=== PATIENT | male | born 1995 | race Caucasian/White ===

== ENCOUNTER → 2018-12-20 | Outpatient (CLI) | payer BC | LOC: LAB 18:38 | DX: R30.0 Dysuria (principal); Z20.2 Contact with and (suspected) exposure to infections with a predominantly sexual mode of transmission ==

== ENCOUNTER → 2020-06-03 | Outpatient (CLI) | payer BC | LOC: LAB 18:16 | DX: Z11.3 Encounter for screening for infections with a predominantly sexual mode of transmission (principal) ==

== ENCOUNTER → 2020-07-02 | Outpatient (CLI) | payer BC | LOC: LAB 18:42 | DX: A74.9 Chlamydial infection, unspecified (principal) ==

== ENCOUNTER 2022-02-09 13:18 | Outpatient (RCR) | payer OTHER ==
[~2022-02-09 13:18] MED LIST: NORCO 325 MG-51 TA1 PO
[2022-02-23] MEDS ORDERED: ACETAMINOPHEN-H1 TA2 PO (14:56)
== END 2022-02-10 ==
LOC: PT
DX: S92.322A Displaced fracture of second metatarsal bone, left foot, initial encounter for closed fracture (principal); S93.622A Sprain of tarsometatarsal ligament of left foot, initial encounter

== ENCOUNTER 2022-02-11 13:34 | Outpatient (RCR) | payer OTHER ==
[2022-02-23] MEDS ORDERED: ACETAMINOPHEN-H1 TA2 PO (14:56)
== END 2022-02-17 17:00 | disposition home or self-care (01) ==
LOC: PT 13:34
DX: S92.322D Displaced fracture of second metatarsal bone, left foot, subsequent encounter for fracture with routine healing (principal); S93.622D Sprain of tarsometatarsal ligament of left foot, subsequent encounter; X58.XXXD Exposure to other specified factors, subsequent encounter

== ENCOUNTER 2022-03-15 13:33 | Outpatient (RCR) | payer OTHER ==
[~2022-03-15 13:33] MED LIST changes: +ACETAMINOPHEN-H1 TA2 PO
== END 2022-04-12 | disposition still patient (30) ==
LOC: PT
DX: S97.82XD Crushing injury of left foot, subsequent encounter (principal); X58.XXXD Exposure to other specified factors, subsequent encounter

== ENCOUNTER 2022-04-13 13:10 | Outpatient (RCR) | payer OTHER | END 2022-05-12 | disposition home or self-care (01) | LOC: PT | DX: S97.82XD Crushing injury of left foot, subsequent encounter (principal); X58.XXXD Exposure to other specified factors, subsequent encounter ==

== ENCOUNTER 2023-01-11 13:33 | Outpatient (RCR) | payer OTHER | END 2023-02-10 | disposition home or self-care (01) | LOC: PT | DX: M79.672 Pain in left foot (principal); Z98.1 Arthrodesis status ==

== ENCOUNTER → 2024-07-12 | Outpatient (CLI) | payer BC | LOC: RAD 15:34 | DX: M19.072 Primary osteoarthritis, left ankle and foot (principal); Z98.890 Other specified postprocedural states ==